=== PATIENT | female | born 1980 | race African-American/Black ===

== ENCOUNTER 2016-05-31 17:40 | Emergency (ER) | payer BC ==
[2016-01-25 17:12] VITALS: BP 152/85
[~2016-05-31 17:40] MED LIST: CYCL10TA2 PO; NAPR250T2 PO; ONDA4TAB7 PO
== END 2016-05-31 20:03 | disposition left against medical advice (07) ==
LOC: ER 17:40
DX: J02.9 Acute pharyngitis, unspecified (principal); R05 Cough; Z53.21 Procedure and treatment not carried out due to patient leaving prior to being seen by health care provider

== ENCOUNTER 2016-06-20 06:52 | Emergency (ER) | payer BC ==
[~2016-06-20] VITALS: Ht 154.9 cm; Wt 52.2 kg
--- NOTE | 2016-06-20 06:58 | PHYS DOC ---
Past Medical History Past Medical History: Depression Past Surgical History: No Surgical History Alcohol Use: Rarely Drug Use: None Adult General Chief Complaint Chief Complaint: EYE PROBLEMS HPI HPI Patient is a 35 year old for can [place] female who presents with right eye pain. She states this started yesterday during the day, she felt right-sided headache took Tylenol and it resolved. She woke up this morning with yellow crusty discharge out of her right eye and redness on her sclera in the medial aspect. She states she's having some itchy sensation across that yesterday and today is more pain sensation. She does complain about cold-like symptoms. She denies any changes in vision. Her tetanus shot is up-to-date. Review of Systems Review of Systems Constitutional: Denies fever or chills [] Eyes: Denies change in visual acuity, redness, or eye pain [] HENT: Denies nasal congestion or sore throat [] Respiratory: Denies cough or shortness of breath [] Cardiovascular: No additional information not addressed in HPI [] GI: Denies abdominal pain, nausea, vomiting, bloody stools or diarrhea [] : Denies dysuria or hematuria [] Musculoskeletal: Denies back pain or joint pain [] Integument: Denies rash or skin lesions [] Neurologic: Denies headache, focal weakness or sensory changes [] Endocrine: Denies polyuria or polydipsia [] Current Medications Current Medications Current Medications Medications (Trade) Dose Ordered Sig/Randy Start Time Stop Time Status Last Admin Dose Admin Erythromycin (Romycin) 0.25 inch 1X ONCE 06/20/16 07:30 06/20/16 07:31 DC 06/20/16 07:35 0.25 INCH Fluorescein Sodium (Ful-Nia) 1 strip 1X ONCE 06/20/16 07:15 06/20/16 07:16 DC 06/20/16 07:35 1 STRIP Tetracaine HCl (Tetracaine) 1 drop 1X ONCE 06/20/16 07:15 06/20/16 07:16 DC 06/20/16 07:35 1 DROP Allergies Allergies Allergies Coded Allergies Type Severity Reaction Last Updated Verified Penicillins Allergy Unknown 01/25/16 Yes Physical Exam Physical Exam Constitutional: Well developed, well nourished, no acute distress, non-toxic appearance. [] HENT: Normocephalic, atraumatic, bilateral external ears normal, oropharynx moist, no oral exudates, nose normal. [] Eyes: PERRLA, EOMI without pain, erythematous conjunctiva in the right eye than the left lateral aspect towards the Ravi, Rosendo-Pen shows pressures of 12, 15, 13 , for seeing did not show any uptake over the cornea, no discharge. [] Neck: Normal range of motion, no tenderness, supple, no stridor. [] Cardiovascular:Heart rate regular rhythm, no murmur [] Lungs & Thorax: Bilateral breath sounds clear to auscultation [] Abdomen: Bowel sounds normal, soft, no tenderness, no masses, no pulsatile masses. [] Skin: Warm, dry, no erythema, no rash. [] Back: No tenderness, no CVA tenderness. [] Extremities: No tenderness, no cyanosis, no clubbing, ROM intact, no edema. [] Neurologic: Alert and oriented X 3, normal motor function, normal sensory function, no focal deficits noted. [] Psychologic: Affect normal, judgement normal, mood normal. [] Current Patient Data Vital Signs Vital Signs Date Time Temp Pulse Resp B/P Pulse Ox O2 Delivery O2 Flow Rate FiO2 06/20/16 07:00 98.4 97 16 100 Room Air 98.4 06/20/16 06:58 121/76 EKG EKG [] Radiology/Procedures Radiology/Procedures [] Impressions: Conjunctivitis right eye Course & Med Decision Making Course & Med Decision Making Pertinent Labs and Imaging studies reviewed. (See chart for details) Acuities were 20/13 both eyes, 20/15 left eye, 20/15 right eye. Rosendo-Pen does not show any elevation of her pressures, there is no corneal abrasions or other concerning features. Patient being discharged with erythromycin ointment and to follow-up with her eye doctor today. Return precautions given for fevers, worsening pain, or other concerns return back to emergency department. She is agreeable plan being discharge in stable condition this time. Dragon Disclaimer Dragon Disclaimer This electronic medical record was generated, in whole or in part, using a voice recognition dictation system. Departure Departure Impression: Primary Impression: Conjunctivitis Disposition: 01 HOME, SELF-CARE Referrals: VLADIMIR HOPE MD (PCP) Patient Instructions: Allergic Conjunctivitis, [id number] Additional Instructions: You have conjunctivitis. It is difficult to determine if this is bacterial or viral. The exam of your eye did not show any acute abnormalities. You being discharged home with ureter myosin ointment and needs to be applied 4 times daily approximately 1/2 inch ribbon to the affected eye. He'll need to follow up with her eye doctor today. Return back to ER for increasing pain, blurry vision, fevers, or other concerns. Problem Qualifiers Primary Impression: Conjunctivitis Conjunctivitis type: acute Acute conjunctivitis type: unspecified Laterality: right Qualified Code: H10.31 - Unspecified acute conjunctivitis, right eye WILLIAMS VALDIVIA MD Jun 20, 2016 06:58
[2016-06-20] MEDS ORDERED: FLUORESCEIN OPHTH TEST STRIP. OD ONE (07:15)
[2016-06-20] MEDS ORDERED: TETRACAINE 0.5% OPHTH SOLUTION 4ML BOTTLE. OD ONE (07:15)
[2016-06-20] MEDS ORDERED: ERYTHROMYCIN 0.5% OPHTH OINTMENT 1GM TUBE. OD ONE (07:30)
[2016-06-20 08:00] VITALS: BP 139/82
== END 2016-06-20 08:10 | disposition home or self-care (01) ==
LOC: ER 06:52
DX: H10.31 Unspecified acute conjunctivitis, right eye (principal); R51 Headache; F32.9 Major depressive disorder, single episode, unspecified; Z88.0 Allergy status to penicillin
CPT/HCPCS: 99283

== ENCOUNTER 2017-03-11 06:56 | Emergency (ER) | payer BC ==
[~2017-03-11 06:56] MED LIST changes: -NAPR250T2 PO; +NAPR250T6 PO
[2017-03-11 07:09] VITALS: BP 147/79
[2017-03-11] MEDS ORDERED: BENZ100C PO (07:22)
[2017-03-11] MEDS ORDERED: PROAIR RESPICL90 MCG IH (07:22)
--- NOTE | 2017-03-11 07:23 | PHYS DOC ---
Past Medical History Past Medical History: Depression Past Surgical History: No Surgical History Additional Information: Black and Mild's Alcohol Use: None Drug Use: None Adult General Chief Complaint Chief Complaint: COUGH HPI HPI Patient is a 36 year old female with a history of smoking and depression who presents with a productive cough with nasal congestion for 3-4 days. Patient denies any fever. Patient's also complaining of a sore throat. Review of Systems Review of Systems Constitutional: Denies fever or chills [] Eyes: Denies change in visual acuity, redness, or eye pain [] HENT: nasal congestion and sore throat [] Respiratory: cough denies shortness of breath [] Cardiovascular: No additional information not addressed in HPI [] GI: Denies abdominal pain, nausea, vomiting, bloody stools or diarrhea [] : Denies dysuria or hematuria [] Musculoskeletal: Denies back pain or joint pain [] Integument: Denies rash or skin lesions [] Neurologic: Denies headache, focal weakness or sensory changes [] All other systems were reviewed and found to be within normal limits, except as documented in this note. Allergies Allergies Allergies Coded Allergies Type Severity Reaction Last Updated Verified Penicillins Allergy Unknown 01/25/16 Yes Physical Exam Physical Exam Constitutional: Well developed, well nourished, no acute distress, non-toxic appearance. [] HENT: Normocephalic, atraumatic, bilateral external ears normal, oropharynx moist, no oral exudates, nose normal. [] Eyes: PERRLA, EOMI, conjunctiva normal, no discharge. [] Neck: Normal range of motion, no tenderness, supple, no stridor. [] Cardiovascular:Heart rate regular rhythm, no murmur [] Lungs & Thorax: Bilateral breath sounds clear to auscultation [] Abdomen: Bowel sounds normal, soft, no tenderness, no masses, no pulsatile masses. [] Skin: Warm, dry, no erythema, no rash. [] Back: No tenderness, no CVA tenderness. [] Extremities: No tenderness, no cyanosis, no clubbing, ROM intact, no edema. [] Neurologic: Alert and oriented X 3, normal motor function, normal sensory function, no focal deficits noted. [] Psychologic: Affect normal, judgement normal, mood normal. [] Current Patient Data Vital Signs Vital Signs Date Time Temp Pulse Resp B/P (MAP) Pulse Ox O2 Delivery O2 Flow Rate FiO2 03/11/17 07:09 99.1 116 20 100 Room Air 99.1 EKG EKG [] Radiology/Procedures Radiology/Procedures [] Course & Med Decision Making Course & Med Decision Making Pertinent Labs and Imaging studies reviewed. (See chart for details) Patient is in the ED with symptoms consistent of viral bronchitis including coughing and nasal congestion. She was encouraged to consider smoking cessation. She'll be discharged with albuterol inhaler prednisone for 5 days and Tessalon Perles. Follow-up with primary care doctor in 1-2 weeks. Dragon Disclaimer Dragon Disclaimer This electronic medical record was generated, in whole or in part, using a voice recognition dictation system. Departure Departure Impression: Primary Impression: Acute bronchitis Additional Impression: Smoking addiction Disposition: HOME, SELF-CARE Condition: STABLE Referrals: VLADIMIR HOPE MD (PCP) follow up in one week Patient Instructions: Acute Bronchitis, Smoking Cessation Additional Instructions: You were seen with symptoms consistent of viral bronchitis. Use a prescription medicine as ordered. Consider smoking cessation. Follow up with your doctor in one week Scripts Prednisone (PREDNISONE) 50 Mg Tablet 1 TAB PO DAILY, #5 TAB Prov: MENG KRUEGER APRN 03/11/17 Benzonatate (TESSALON PERLE) 100 Mg Capsule 1 CAP PO TID, #30 CAP Prov: MUTUNGA,MENG MANAGER WIND 03/11/17 Benzonatate (TESSALON PERLE) 100 Mg Capsule 1 CAP PO TID, #30 CAP Prov: MENG KRUEGER APRN 03/11/17 Albuterol Sulfate (Proair Respiclick) 90 Mcg Aer.pow.ba 1 PUFF IH PRN Q6HRS Y for SHORTNESS OF BREATH, #1 INHALER Prov: MENG KRUEGER APRN 03/11/17 Problem Qualifiers Primary Impression: Acute bronchitis Bronchitis organism: unspecified organism Qualified Codes: J20.9 - Acute bronchitis, unspecified MENG KRUEGER APRN Mar 11, 2017 07:23
[2017-03-11] MEDS ORDERED: PRED50TA PO (08:34)
== END 2017-03-11 09:07 | disposition home or self-care (01) ==
LOC: ER 06:56
DX: J20.9 Acute bronchitis, unspecified (principal); F17.200 Nicotine dependence, unspecified, uncomplicated; Z88.0 Allergy status to penicillin
CPT/HCPCS: 99283

== ENCOUNTER 2017-11-30 00:08 | Emergency (ER) | payer BC, OTHER ==
[~2017-11-30] VITALS: Ht 149.9 cm; Wt 51.3 kg
[~2017-11-30 00:08] MED LIST changes: +BENZ100C PO; +PRED50TA PO; +PROAIR RESPICL90 MCG IH
[2017-11-30 02:12] LABS: BASO % 1 % (0-3); EOS # 0.1 x10^3/uL (0.0-0.7); EOS % 1 % (0-3); HEMATOCRIT 39.1 % (36.0-47.0); HEMOGLOBIN 13.4 g/dL (12.0-15.5); LYMPH # 3.2 x10^3/uL (1.0-4.8); LYMPH % 47 % (24-48); MEAN CORPUSCULAR HEMOGLOBIN 34 pg (25-35); MEAN CORPUSCULAR HGB CONC 34 g/dL (31-37); MEAN CORPUSCULAR VOLUME 99 fL (79-100); MONO # 0.6 x10^3/uL (0.0-1.1); MONO % 10 % (0-9); NEUT # 2.8 x10^3uL (1.8-7.7); NEUT % 42 % (31-73); PLATELET COUNT 314 x10^3/uL (140-400); RED BLOOD COUNT 3.96 x10^6/uL (3.50-5.40); RED CELL DISTRIBUTION WIDTH 13.3 % (11.5-14.5); WHITE BLOOD COUNT 6.7 x10^3/uL (4.0-11.0)
[2017-11-30 02:14] LABS: BILIRUBIN,URINE NEGATIVE (NEG); CLARITY,URINE CLEAR; COLOR,URINE YELLOW; NITRITE,URINE NEGATIVE (NEG); PH,URINE 5.5; PROTEIN,URINE NEGATIVE (NEG-TRACE)
[2017-11-30 02:24] LABS: CREATININE 0.7 mg/dL (0.6-1.0); GFR 112.7; POTASSIUM 3.9 mmol/L (3.5-5.1)
[2017-11-30 02:27] LABS: BACTERIA,URINE 0 /HPF (0-FEW); RBC,URINE 0 /HPF (0-2); SQUAMOUS EPITHELIAL CELL,UR FEW /LPF; WBC,URINE RARE /HPF (0-4)
[2017-11-30 02:30] LABS: ALBUMIN 4.2 g/dL (3.4-5.0); ALBUMIN/GLOBULIN RATIO 1.2 (1.0-1.7); TOTAL BILIRUBIN 0.5 mg/dL (0.2-1.0); TOTAL PROTEIN 7.6 g/dL (6.4-8.2)
--- NOTE | 2017-11-30 03:59 | RAD ---
Ultrasound obstetric less than 14 weeks with transvaginal 11/30/2017 CLINICAL INDICATION: Vaginal pain, bleeding for 5 days. COMPARISON: None. FINDINGS: Uterus measures 9.8 x 5.3 x 6.9 cm. There is thin focal fluid at the fundal endometrium measuring 1.5 x 0.6 x 0.4 cm. Left ovary measures 2.9 x 3.1 x 1.7 cm with normal color Doppler imaging. Right ovary measures 2.6 x 3.0 x 1.8 cm with normal color Doppler imaging. Endometrium measures 1.4 cm without abnormal endometrial blood flow. No significant pelvic free fluid. IMPRESSION: 1. Mild thin focal fluid at the fundal endometrium without definitive gestational sac. Findings may be due to early dates. Close clinical follow-up and serial beta hCGs recommended. 2. Ovaries unremarkable. 3. No significant pelvic free fluid. Electronically signed by: Blair Guidry MD (11/30/2017 3:56 AM) [id number]
--- NOTE | 2017-11-30 04:18 | PHYS DOC ---
Past Medical History Past Medical History: Asthma, Depression, Hypertension Past Surgical History: No Surgical History Alcohol Use: None Drug Use: None Adult General Chief Complaint Chief Complaint: VAGINAL BLEEDING HPI HPI Patient is a 37-year-old female who presents with complaint of vaginal spotting and pelvic pain for the last 5 days. Patient indicates that she is and believes herself to be somewhere near 8 weeks based on dates. Patient has not yet seen an CASH POSTING REPRESENTATIVE. She rates the pain in her pelvis at a 5-6 out of 10 and states that it is in the left side. She denies any nausea or vomiting. She also denies any fever or urinary discomfort. 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 Review of Systems Review of Systems Constitutional: Denies fever or chills [] Respiratory: Denies cough or shortness of breath [] Cardiovascular: Denies chest pain[] GI: Complains of lower abdominal/pelvic pain without nausea or vomiting[] : Denies dysuria. Reports vaginal bleeding 5 days [] All other systems were reviewed and found to be within normal limits, except as documented in this note. Allergies Allergies Allergies Coded Allergies Type Severity Reaction Last Updated Verified Penicillins Allergy Unknown 01/25/16 Yes Physical Exam Physical Exam Constitutional: Well developed, well nourished, no acute distress, non-toxic appearance. [] HENT: Normocephalic, atraumatic, bilateral external ears normal, oropharynx moist, no oral exudates, nose normal. [] Eyes: PERRLA, EOMI, conjunctiva normal, no discharge. [] Neck: Normal range of motion, no tenderness, supple, no stridor. [] Cardiovascular:Heart rate regular rhythm, no murmur [] Lungs & Thorax: Bilateral breath sounds clear to auscultation [] Abdomen: Bowel sounds normal, soft, no tenderness. [] Skin: Warm, dry, no erythema, no rash. [] Extremities: No tenderness, no cyanosis, no clubbing, ROM intact, no edema. [] Neurologic: Alert and oriented X 3, normal motor function, normal sensory function, no focal deficits noted. [] Current Patient Data Vital Signs Vital Signs Date Time Temp Pulse Resp B/P (MAP) Pulse Ox O2 Delivery O2 Flow Rate FiO2 11/30/17 04:27 72 20 117/75 (89) 99 Room Air 11/30/17 00:27 98.8 98.8 Lab Values Laboratory Tests Test 11/30/17 01:00 11/30/17 01:33 Urine Collection Type Unknown Urine Color Yellow Urine Clarity Clear Urine pH 5.5 Urine Specific [place] 1.025 Urine Protein Negative mg/dL (NEG-TRACE) Urine Glucose (UA) Negative mg/dL (NEG) Urine Ketones (Stick) Negative mg/dL (NEG) Urine Blood Negative (NEG) Urine Nitrite Negative (NEG) Urine Bilirubin Negative (NEG) Urine Urobilinogen Dipstick 1.0 mg/dL (0.2 mg/dL) Urine Leukocyte Esterase Negative (NEG) Urine RBC 0 /HPF (0-2) Urine WBC Rare /HPF (0-4) Urine Squamous Epithelial Cells Few /LPF Urine Bacteria 0 /HPF (0-FEW) Urine Mucus Mod /LPF White Blood Count 6.7 x10^3/uL (4.0-11.0) Red Blood Count 3.96 x10^6/uL (3.50-5.40) Hemoglobin 13.4 g/dL (12.0-15.5) Hematocrit 39.1 % (36.0-47.0) Mean Corpuscular Volume 99 fL (79-100) Mean Corpuscular Hemoglobin 34 pg (25-35) Mean Corpuscular Hemoglobin Concent 34 g/dL (31-37) Red Cell Distribution Width 13.3 % (11.5-14.5) Platelet Count 314 x10^3/uL (140-400) Neutrophils (%) (Auto) 42 % (31-73) Lymphocytes (%) (Auto) 47 % (24-48) Monocytes (%) (Auto) 10 % (0-9) H Eosinophils (%) (Auto) 1 % (0-3) Basophils (%) (Auto) 1 % (0-3) Neutrophils # (Auto) 2.8 x10^3uL (1.8-7.7) Lymphocytes # (Auto) 3.2 x10^3/uL (1.0-4.8) Monocytes # (Auto) 0.6 x10^3/uL (0.0-1.1) Eosinophils # (Auto) 0.1 x10^3/uL (0.0-0.7) Basophils # (Auto) 0.0 x10^3/uL (0.0-0.2) Maternal Serum HCG Beta Subunit 872 mIU/mL (0-5) H Sodium Level 139 mmol/L (136-145) Potassium Level 3.9 mmol/L (3.5-5.1) Chloride Level 103 mmol/L (98-107) Carbon Dioxide Level 24 mmol/L (21-32) Anion Gap 12 (6-14) Blood Urea Nitrogen 8 mg/dL (7-20) Creatinine 0.7 mg/dL (0.6-1.0) Estimated GFR (Cockcroft-Gault) 112.7 BUN/Creatinine Ratio 11 (6-20) Glucose Level 96 mg/dL (70-99) Calcium Level 9.0 mg/dL (8.5-10.1) Total Bilirubin 0.5 mg/dL (0.2-1.0) Aspartate Amino Transferase (AST) 17 U/L (15-37) Alanine Aminotransferase (ALT) 22 U/L (14-59) Alkaline Phosphatase 62 U/L (46-116) Total Protein 7.6 g/dL (6.4-8.2) Albumin 4.2 g/dL (3.4-5.0) Albumin/Globulin Ratio 1.2 (1.0-1.7) Laboratory Tests 11/30/17 01:33 Laboratory Tests 11/30/17 01:33 EKG EKG [] Radiology/Procedures Radiology/Procedures [] Impressions: IMPRESSION: 1. Mild thin focal fluid at the fundal endometrium without definitive gestational sac. Findings may be due to early dates. Close clinical follow-up and serial beta hCGs recommended. 2. Ovaries unremarkable. 3. No significant pelvic free fluid. Course & Med Decision Making Course & Med Decision Making Pertinent Labs and Imaging studies reviewed. (See chart for details) [] Dragon Disclaimer Dragon Disclaimer This electronic medical record was generated, in whole or in part, using a voice recognition dictation system. Departure Departure Impression: Primary Impression: Threatened miscarriage Disposition: HOME, SELF-CARE Condition: STABLE Referrals: VLADIMIR HUYNH (PCP) Patient Instructions: Threatened Miscarriage Additional Instructions: Follow-up with your CASH POSTING REPRESENTATIVE early this week. ALEXANDER ANSARI Jr. DO Nov 30, 2017 04:18
[2017-11-30 04:27] VITALS: BP 117/75
== END 2017-11-30 04:29 | disposition home or self-care (01) ==
LOC: ER 00:08
DX: O20.0 Threatened abortion (principal); O16.1 Unspecified maternal hypertension, first trimester; O99.511 Diseases of the respiratory system complicating pregnancy, first trimester; J45.909 Unspecified asthma, uncomplicated; O99.341 Other mental disorders complicating pregnancy, first trimester; F32.9 Major depressive disorder, single episode, unspecified; Z3A.08 8 weeks gestation of pregnancy; Z88.0 Allergy status to penicillin
CPT/HCPCS: 36415; 76801; 76817; 80053; 81001; 84702; 85025; 86900; 86901; 99285-25

== ENCOUNTER 2019-06-09 10:24 | Emergency (ER) | payer SELFPAY ==
[~2019-06-09] VITALS: Ht 157.5 cm; Wt 50.0 kg
--- NOTE | 2019-06-09 12:08 | PHYS DOC ---
Past Medical History Past Medical History: Asthma, Depression, Hypertension Past Surgical History: No Surgical History Smoking Status: Former Smoker Alcohol Use: None Drug Use: None Adult General Chief Complaint Chief Complaint: VAGINAL BLEEDING HPI HPI 38-year-old female multiparous with a hx of ectopic x 1 presenting the emergency department with abdominal pain and vaginal bleeding and . She is about 5 weeks by last menstrual period. She has had some light spotting with a mild cramping in the suprapubic region. She is a positive by review of the EMR. Her cramping comes and goes. Her spotting is worse when she is ambulating. She denies any vomiting. Review of systems negative for shortness of breath fevers chills. Negative for chest pain. All other review of systems negative. ED course: 38-year-old female presenting with abdominal pain and vaginal bleeding in with a history of ectopic . Labs and ultrasound ordered. CBC unremarkable. Chem unremarkable. ua neg. hcg quant is 1110 and US shows possible gestational sac. We will have the patient follow-up with OB gynecology in 1-2 days for repeat quantitative hCG and reexamination. Allergies Allergies Allergies Coded Allergies Type Severity Reaction Last Updated Verified Penicillins Allergy Unknown 01/25/16 Yes Physical Exam Physical Exam Constitutional: Well developed, well nourished, no acute distress, non-toxic appearance. [] HENT: Normocephalic, atraumatic, bilateral external ears normal, oropharynx moist, no oral exudates, nose normal. [] Eyes: PERRLA, EOMI, conjunctiva normal, no discharge. [] Neck: Normal range of motion, no tenderness, supple, no stridor. [] Cardiovascular:Heart rate regular rhythm, no murmur [] Lungs & Thorax: Bilateral breath sounds clear to auscultation [] Abdomen: Bowel sounds normal, soft, no tenderness, no masses, no pulsatile masses. [] Skin: Warm, dry, no erythema, no rash. [] Back: No tenderness, no CVA tenderness. [] Extremities: No tenderness, no cyanosis, no clubbing, ROM intact, no edema. [] Neurologic: Alert and oriented X 3, normal motor function, normal sensory function, no focal deficits noted. [] Psychologic: Affect normal, judgement normal, mood normal. [] Current Patient Data Vital Signs Vital Signs Date Time Temp Pulse Resp B/P (MAP) Pulse Ox O2 Delivery O2 Flow Rate FiO2 06/09/19 11:50 99.5 87 14 109/70 (83) 100 Room Air 99.5 Lab Values Laboratory Tests Test 06/09/19 11:50 06/09/19 12:01 06/09/19 12:15 Urine Collection Type Void Urine Color Yellow Urine Clarity Clear Urine pH 7.5 Urine Specific [place] 1.020 Urine Protein Negative mg/dL (NEG-TRACE) Urine Glucose (UA) Negative mg/dL (NEG) Urine Ketones (Stick) Negative mg/dL (NEG) Urine Blood Negative (NEG) Urine Nitrite Negative (NEG) Urine Bilirubin Negative (NEG) Urine Urobilinogen Dipstick 0.2 mg/dL (0.2 mg/dL) Urine Leukocyte Esterase Negative (NEG) Urine RBC 0 /HPF (0-2) Urine WBC 0 /HPF (0-4) Urine Squamous Epithelial Cells Mod /LPF Urine Bacteria 0 /HPF (0-FEW) Urine Mucus Mod /LPF POC Urine HCG, Qualitative Hcg positive (Negative) White Blood Count 5.6 x10^3/uL (4.0-11.0) Red Blood Count 4.03 x10^6/uL (3.50-5.40) Hemoglobin 13.3 g/dL (12.0-15.5) Hematocrit 39.4 % (36.0-47.0) Mean Corpuscular Volume 98 fL (79-100) Mean Corpuscular Hemoglobin 33 pg (25-35) Mean Corpuscular Hemoglobin Concent 34 g/dL (31-37) Red Cell Distribution Width 13.1 % (11.5-14.5) Platelet Count 338 x10^3/uL (140-400) Neutrophils (%) (Auto) 48 % (31-73) Lymphocytes (%) (Auto) 44 % (24-48) Monocytes (%) (Auto) 8 % (0-9) Eosinophils (%) (Auto) 0 % (0-3) Basophils (%) (Auto) 1 % (0-3) Neutrophils # (Auto) 2.7 x10^3/uL (1.8-7.7) Lymphocytes # (Auto) 2.5 x10^3/uL (1.0-4.8) Monocytes # (Auto) 0.4 x10^3/uL (0.0-1.1) Eosinophils # (Auto) 0.0 x10^3/uL (0.0-0.7) Basophils # (Auto) 0.0 x10^3/uL (0.0-0.2) Maternal Serum HCG Beta Subunit 1110 mIU/mL (0-5) H Sodium Level 141 mmol/L (136-145) Potassium Level 3.6 mmol/L (3.5-5.1) Chloride Level 105 mmol/L (98-107) Carbon Dioxide Level 24 mmol/L (21-32) Anion Gap 12 (6-14) Blood Urea Nitrogen 7 mg/dL (7-20) Creatinine 0.7 mg/dL (0.6-1.0) Estimated GFR (Cockcroft-Gault) 112.1 Glucose Level 93 mg/dL (70-99) Calcium Level 9.1 mg/dL (8.5-10.1) Total Bilirubin 0.4 mg/dL (0.2-1.0) Direct Bilirubin 0.1 mg/dL (0.0-0.2) Aspartate Amino Transferase (AST) 12 U/L (15-37) L Alanine Aminotransferase (ALT) 17 U/L (14-59) Alkaline Phosphatase 63 U/L (46-116) Total Protein 7.7 g/dL (6.4-8.2) Albumin 4.1 g/dL (3.4-5.0) Lipase 151 U/L (73-393) Laboratory Tests 06/09/19 12:15 Laboratory Tests 06/09/19 12:15 EKG EKG [] Radiology/Procedures Radiology/Procedures [] Course & Med Decision Making Course & Med Decision Making Pertinent Labs and Imaging studies reviewed. (See chart for details) [] Dragon Disclaimer Dragon Disclaimer This electronic medical record was generated, in whole or in part, using a voice recognition dictation system. Departure Departure Impression: Primary Impression: Vaginal bleeding during Disposition: 01 HOME, SELF-CARE Condition: STABLE Referrals: VLADIMIR HUYNH (PCP) SEPIDEH RODAS Jr, MD Patient Instructions: Vaginal Bleeding During , First Trimester Additional Instructions: Thank you for allowing us to participate in your care today. Return to the emergency department you have any new or worsening symptoms, or if you are concerned for any reason. Return to emergency department if you have any new or concerning symptoms including but not limited to fever, chills, nausea, vomiting, intractable pain, any new rashes, chest pain, shortness of air, uncontrolled bleeding, difficulty breathing, and/or vision loss. Follow up with your automobile or truck rental dispatcher in 1-2 days for repeat blood test and reexamination. Call your Primary Doctor tomorrow and inform them of your visit today. If you do not have a primary care provider we are happy to provide you with a list of our primary care providers contact information. This condition should be evaluated by your primary care physician and any recommended consulting services for continued management within 2 days after discharge. If at any time, you are having difficulty getting into your primary care doctor or a specialist, return to the emergency department. LAI MORALEZ MD Jun 09, 2019 12:08
[2019-06-09 12:30] LABS: BILIRUBIN,URINE NEGATIVE (NEG); CLARITY,URINE CLEAR; COLOR,URINE YELLOW; NITRITE,URINE NEGATIVE (NEG); PH,URINE 7.5; PROTEIN,URINE NEGATIVE (NEG-TRACE); UROBILINOGEN,URINE 0.2 mg/dL (0.2 mg/dL)
[2019-06-09 12:31] LABS: BASO % 1 % (0-3); EOS % 0 % (0-3); HEMATOCRIT 39.4 % (36.0-47.0); HEMOGLOBIN 13.3 g/dL (12.0-15.5); LYMPH # 2.5 x10^3/uL (1.0-4.8); LYMPH % 44 % (24-48); MEAN CORPUSCULAR HEMOGLOBIN 33 pg (25-35); MEAN CORPUSCULAR HGB CONC 34 g/dL (31-37); MEAN CORPUSCULAR VOLUME 98 fL (79-100); MONO # 0.4 x10^3/uL (0.0-1.1); MONO % 8 % (0-9); NEUT # 2.7 x10^3/uL (1.8-7.7); NEUT % 48 % (31-73); PLATELET COUNT 338 x10^3/uL (140-400); RED BLOOD COUNT 4.03 x10^6/uL (3.50-5.40); RED CELL DISTRIBUTION WIDTH 13.1 % (11.5-14.5); WHITE BLOOD COUNT 5.6 x10^3/uL (4.0-11.0)
[2019-06-09 12:37] LABS: BACTERIA,URINE 0 /HPF (0-FEW); RBC,URINE 0 /HPF (0-2); SQUAMOUS EPITHELIAL CELL,UR MOD /LPF; WBC,URINE 0 /HPF (0-4)
[2019-06-09 12:41] LABS: CALCIUM 9.1 mg/dL (8.5-10.1); CREATININE 0.7 mg/dL (0.6-1.0); GFR 112.1; POTASSIUM 3.6 mmol/L (3.5-5.1)
[2019-06-09 12:47] LABS: ALBUMIN 4.1 g/dL (3.4-5.0); DIRECT BILIRUBIN 0.1 mg/dL (0.0-0.2); TOTAL BILIRUBIN 0.4 mg/dL (0.2-1.0); TOTAL PROTEIN 7.7 g/dL (6.4-8.2)
[2019-06-09 13:00] VITALS: BP 130/73
--- NOTE | 2019-06-09 14:18 | RAD ---
OB <14 WKS W/TV History: Vaginal bleeding. Comparison: None. Technique: Grayscale and color Doppler imaging of the pelvis was performed using transabdominal and transvaginal technique. Findings: The uterus measures 7.5 x 5.2 x 6.1 cm in length. Possible gestational sac within the endometrium measures 0.3 cm. Estimated gestational age 5 weeks 0 days. No evidence of pole or yolk sac. Thickened endometrium measures up to 2.3 cm. Right ovary measures 2.8 x 1.6 x 3.6 cm dominant complicated right ovarian follicle measures 2.1 cm, may represent corpus luteal cyst. Left ovary measures 2.2 x 1.1 x 2.5 cm and is unremarkable. No adnexal masses are seen. No free fluid. IMPRESSION: 1. Possible intrauterine gestational sac, may relate to early . Recommend short-term ultrasound follow-up and serial beta-hCG testing. Electronically signed by: Steven Robison DO (06/09/2019 2:15 PM) [id number]
== END 2019-06-09 14:50 | disposition home or self-care (01) ==
LOC: ER 10:24
DX: O46.91 Antepartum hemorrhage, unspecified, first trimester (principal); R10.30 Lower abdominal pain, unspecified; Z87.891 Personal history of nicotine dependence; O16.1 Unspecified maternal hypertension, first trimester; O99.341 Other mental disorders complicating pregnancy, first trimester; F32.9 Major depressive disorder, single episode, unspecified; O99.511 Diseases of the respiratory system complicating pregnancy, first trimester; J45.909 Unspecified asthma, uncomplicated; Z3A.01 Less than 8 weeks gestation of pregnancy; Z88.0 Allergy status to penicillin
CPT/HCPCS: 36415; 76801; 76817; 80048; 80076; 81001; 81025; 83690; 84702; 85025; 99285-25

== ENCOUNTER 2019-06-22 00:19 | Observation (INO) | payer OTHER ==
[~2019-06-22] VITALS: Ht 149.9 cm; Wt 52.3 kg
[2019-06-22 01:16] LABS: BASO # 0.1 x10^3/uL (0.0-0.2); BASO % 1 % (0-3); EOS % 1 % (0-3); HEMATOCRIT 32.7 % (36.0-47.0); HEMOGLOBIN 11.2 g/dL (12.0-15.5); LYMPH % 45 % (24-48); MEAN CORPUSCULAR HEMOGLOBIN 33 pg (25-35); MEAN CORPUSCULAR HGB CONC 34 g/dL (31-37); MEAN CORPUSCULAR VOLUME 97 fL (79-100); MONO # 0.6 x10^3/uL (0.0-1.1); MONO % 7 % (0-9); NEUT # 4.3 x10^3/uL (1.8-7.7); NEUT % 48 % (31-73); PLATELET COUNT 314 x10^3/uL (140-400); RED BLOOD COUNT 3.39 x10^6/uL (3.50-5.40); RED CELL DISTRIBUTION WIDTH 13.3 % (11.5-14.5); WHITE BLOOD COUNT 9.1 x10^3/uL (4.0-11.0)
[2019-06-22 01:22] LABS: PROTHROMBIN TIME PATIENT 13.5 SEC (11.7-14.0)
--- NOTE | 2019-06-22 01:22 | PHYS DOC ---
Past Medical History Past Medical History: Asthma, Depression, Hypertension Past Surgical History: No Surgical History Smoking Status: Former Smoker Alcohol Use: None Drug Use: None Adult General Chief Complaint Chief Complaint: ABDOMINAL PAIN IN HPI HPI Patient is a 38 year old female who presents from [facility] with report of ectopic . Dr. Armendariz has requested that patient be transferred to the ER and ultrasound be performed to confirm ectopic. Patient does report pain in her pelvic region as well as vaginal spotting. She rates the pain as moderate currently after receiving medication for pain.[] Review of Systems Review of Systems Constitutional: Denies fever or chills [] Respiratory: Denies cough or shortness of breath [] Cardiovascular: No additional information not addressed in HPI [] GI: Complains of lower abdominal pain[] : Complains of vaginal bleeding[] Musculoskeletal: Denies back pain or joint pain [] All other systems were reviewed and found to be within normal limits, except as documented in this note. Current Medications Current Medications Current Medications Medications (Trade) Dose Ordered Sig/Randy Start Time Stop Time Status Last Admin Dose Admin Fentanyl Citrate (Fentanyl 2ml Vial) 25 mcg PRN Q15MIN PRN 06/22/19 00:30 06/23/19 00:29 Allergies Allergies Allergies Coded Allergies Type Severity Reaction Last Updated Verified Penicillins Allergy Intermediate 06/22/19 Yes Physical Exam Physical Exam Constitutional: Well developed, well nourished, no acute distress, non-toxic appearance. [] Cardiovascular: Regular rate and rhythm[] Lungs & Thorax: Bilateral breath sounds clear to auscultation [] Abdomen: Bowel sounds normal, soft, with suprapubic and right adnexal tenderness. [] Skin: Warm, dry, no erythema, no rash. [] Extremities: No tenderness, no cyanosis, no clubbing, ROM intact, no edema. [] Neurologic: Alert and oriented X 3, no focal deficits noted. [] EKG EKG [] Radiology/Procedures Radiology/Procedures [] Course & Med Decision Making Course & Med Decision Making Pertinent Labs and Imaging studies reviewed. (See chart for details) Patient moved to room upon arrival was evaluated by your medical staff after which blood work was drawn. Transvaginal ultrasound also obtained and demons trates confirmation of right-sided ectopic with suspected rupture. Findings have been reviewed with Dr. Armendariz and he has requested that OR team be called in. Jam Disclaimer Jma Disclaimer This electronic medical record was generated, in whole or in part, using a voice recognition dictation system. Departure Departure Impression: Primary Impression: , ectopic, tubal Disposition: ADMITTED INPATIENT Condition: IMPROVED Referrals: VLADIMIR HUYNH (PCP) Problem Qualifiers Primary Impression: , ectopic, tubal Intrauterine status: without intrauterine Laterality: right Qualified Codes: O00.101 - Right tubal without intrauterine ALEXANDER ANSARI Jr. DO Jun 22, 2019 01:22
[2019-06-22 01:24] LABS: CALCIUM 9.1 mg/dL (8.5-10.1); CREATININE 0.6 mg/dL (0.6-1.0); POTASSIUM 3.8 mmol/L (3.5-5.1)
--- NOTE | 2019-06-22 01:24 | RAD ---
OB TRANSVAG History: Suspected ectopic . Pain. Comparison: June 09, 2019. Technique: Grayscale and color Doppler imaging of the pelvis was performed using transvaginal technique. Findings: The uterus measures 10.0 x 5.5 x 5.1 cm in length. No evidence of intrauterine gestational sac. Thickened endometrium measures up to 1.8 cm. Right adnexal ectopic between the ovary and uterus. The gestational sac measures 2.3 x 2.3 x 2.0 cm. Yolk sac is identified. No crown-rump length. There is adjacent complex material, concerning for hemorrhage. Right ovary measures 3.2 x 1.7 x 1.5 cm. Right corpus luteal cyst. Left ovary measures 2.4 x 1.0 x 1.0 cm. No adnexal masses are seen. IMPRESSION: 1. Right ectopic with adjacent heterogeneous material, may represent hemorrhage related to ruptured ectopic . FOR INTERNAL CODING PURPOSES Critical result: Findings discussed with ALEXANDER ANSARI at 06/22/2019 1:20 AM. RESULT CODE: (C) Electronically signed by: Steven Robison DO (06/22/2019 1:21 AM) [id number]
[2019-06-22 01:30] LABS: ALBUMIN 3.9 g/dL (3.4-5.0); ALBUMIN/GLOBULIN RATIO 1.2 (1.0-1.7); TOTAL BILIRUBIN 0.4 mg/dL (0.2-1.0); TOTAL PROTEIN 7.1 g/dL (6.4-8.2)
[2019-06-22] MEDS ORDERED: fentaNYL PF VIAL 100 MCG/2 ML VIAL ONE ×2 (01:51→03:34)
[2019-06-22] MEDS ORDERED: SUCCINYLCHOLINE 200 MG/10 ML VIAL. ONE (01:51)
[2019-06-22] MEDS ORDERED: ROCURONIUM 50 MG/5 ML VIAL. ONE (01:51)
[2019-06-22] MEDS ORDERED: ONDANSETRON PF 4 MG/2 ML VIAL. ONE (01:52)
[2019-06-22] MEDS ORDERED: PROPOFOL 20 ML IV ONE (01:52)
[2019-06-22] MEDS ORDERED: SEVOFLURANE 31 TO 60 MINUTES. IH ONE (01:52)
[2019-06-22] MEDS ORDERED: DEXAMETHASONE SOD PHOS 4 MG/ML VIAL ONE (01:52)
[2019-06-22] MEDS ORDERED: KETOROLAC 30 MG/ML VIAL. ONE (01:52)
[2019-06-22] MEDS ORDERED: LIDOCAINE 2% PF 5 ML VIAL. ONE (01:52)
[2019-06-22] MEDS ORDERED: CLINDAMYCIN 900MG PREMIX 50 ML IV ONE (02:02)
--- NOTE | 2019-06-22 02:06 | PDOC1 ---
History and Physical Date of Admission Date of Admission DATE: 06/22/19 TIME: 02:01 Identification/Chief Complaint Chief Complaint abd pain and vaginal spotting Source Source: Patient History of Present Illness History of Present Illness 38 y/o A6 @ 7 wks presented to ED from [facility] with possible ectopic . She reports severe abd pain that was worsening and vaginal spotting. Pelvic sono confirms possible ruptured ectopic . She has h/o ectopic in past that was treated with methotrexate. Current Problem List Problem List Problems Medical Problems: (1) , ectopic, tubal Status: Acute Current Medications Current Medications Current Medications Fentanyl Citrate (Fentanyl 2ml Vial) 25 mcg PRN Q15MIN PRN IV PAIN GREATER THAN 3/10; Start 06/22/19 at 00:30; Stop 06/23/19 at 00:29 Succinylcholine Chloride (Anectine) 200 mg STK-MED ONCE .ROUTE ; Start 06/22/19 at 01:51; Stop 06/22/19 at 01:51; Status DC Rocuronium Duff (Zemuron) 50 mg STK-MED ONCE .ROUTE ; Start 06/22/19 at 01:51; Stop 06/22/19 at 01:51; Status DC Fentanyl Citrate (Fentanyl 2ml Vial) 100 mcg STK-MED ONCE .ROUTE ; Start 06/22/19 at 01:51; Stop 06/22/19 at 01:51; Status DC Sevoflurane (Ultane) 30 ml STK-MED ONCE IH ; Start 06/22/19 at 01:52; Stop 06/22/19 at 01:52; Status DC Dexamethasone Sodium Phosphate (Decadron) 4 mg STK-MED ONCE .ROUTE ; Start 06/22/19 at 01:52; Stop 06/22/19 at 01:52; Status DC Ketorolac Tromethamine (Toradol 30mg Vial) 30 mg STK-MED ONCE .ROUTE ; Start 06/22/19 at 01:52; Stop 06/22/19 at 01:52; Status DC Ondansetron HCl (Zofran) 4 mg STK-MED ONCE .ROUTE ; Start 06/22/19 at 01:52; Stop 06/22/19 at 01:52; Status DC Lidocaine HCl (Lidocaine Pf 2% Vial) 5 ml STK-MED ONCE .ROUTE ; Start 06/22/19 at 01:52; Stop 06/22/19 at 01:52; Status DC Propofol 20 ml @ As Directed STK-MED ONCE IV ; Start 06/22/19 at 01:52; Stop 06/22/19 at 01:52; Status DC Active Scripts Active Prednisone 50 Mg Tablet 1 Tab PO DAILY Tessalon Perle (Benzonatate) 100 Mg Capsule 1 Cap PO TID Tessalon Perle (Benzonatate) 100 Mg Capsule 1 Cap PO TID Proair Respiclick (Albuterol Sulfate) 90 Mcg Aer.pow.ba 1 Puff IH PRN Q6HRS PRN Zofran (Ondansetron Hcl) 4 Mg Tablet 1 Tab PO PRN Q6-8HRS PRN Cyclobenzaprine Hcl 10 Mg Tablet 10 Mg PO TID PRN Naproxen 250 Mg Tablet 250 Mg PO PRN BID PRN Allergies Allergies: Coded Allergies: Penicillins (Verified Allergy, Intermediate, 06/22/19) ROS General: YES: Malaise; No: Chills, Night Sweats, Fatigue, Appetite, Other PSYCHOLOGICAL ROS: YES: Anxiety; No: Behavioral Disorder, Concentration difficultie, Decreased libido, D epression, Disorientation, Hallucinations, Hostility, Irritablity, Memory difficulties, Mood Swings, Obsessive thoughts, Physical abuse, Sexual abuse, Sleep disturbances, Suicidal ideation, Other Eyes: Yes Uses glasses; No Blurry vision, No Decreased vision, No Double vision, No Dry eyes, No Excessive tearing, No Eye Pain, No Itchy Eyes, No Loss of vision, No Photophobia, No Scotomata, No Uses contacts, No Other HEENT: No: Heacaches, Visual Changes, Hearing change, Nasal congestion, Nasal discharge, Oral lesions, Sinus pain, Sore Throat, Epistaxis, Sneezing, Snoring, Tinnitus, Vertigo, Vocal changes, Other ALLERGY AND IMMUNOLOGY: No: Hives, Insect Bite Sensitivity, Itchy/Watery Eyes, Nasal Congestion, Post Nasal Drip, Seasonal Allergies, Other Hematological and Lymphatic: No: Bleeding Problems, Blood Clots, Blood Transfusions, Brusing, Night Sweats, Pallor, Swollen Lymph Nodes, Other ENDOCRINE: No: Breast Changes, Galactorrhea, Hair Pattern Changes, Hot Flashes, Malaise/lethargy, Mood Swings, Palpitations, Polydipsia/polyuria, Skin Changes, Temperature Intolerance, Unexpected Weight Changes, Other Respiratory: No: Cough, Hemoptysis, Orthopnea, Pleuritic Pain, Shortness of breath, SOB with excertion, Sputum Changes, Stridor, Tachypnea, Wheezing, Other Cardiovascular: No Chest Pain, No Palpitations, No Orthopnea, No Paroxysmal Noc. Dyspnea, No Edema, No Lt Headedness, No Other Gastrointestinal: Yes Abdominal Pain Skin: No Dry Skin, No Eczema, No Hair Changes, No Lumps, No Mole Changes, No Mottling, No Nail Changes, No Pruritus, No Rash, No Skin Lesion Changes, No Other, No Acne Physical Exam General: Alert, Oriented X3, Cooperative, mild distress HEENT: Atraumatic Lungs: Clear to auscultation Heart: S1S2 Abdomen: Normal bowel sounds, Soft, Other (tenderness) PELVIC: Examination not indicated Psych/Mental Status: Mental status NL Vitals Vitals Vital Signs Date Time Temp Pulse Resp B/P (MAP) Pulse Ox O2 Delivery O2 Flow Rate FiO2 06/22/19 00:20 98.4 80 18 108/59 (75) 98 Room Air 98.4 Labs Labs Laboratory Tests Test 06/22/19 01:03 White Blood Count 9.1 x10^3/uL (4.0-11.0) Red Blood Count 3.39 x10^6/uL (3.50-5.40) Hemoglobin 11.2 g/dL (12.0-15.5) Hematocrit 32.7 % (36.0-47.0) Mean Corpuscular Volume 97 fL (79-100) Mean Corpuscular Hemoglobin 33 pg (25-35) Mean Corpuscular Hemoglobin Concent 34 g/dL (31-37) Red Cell Distribution Width 13.3 % (11.5-14.5) Platelet Count 314 x10^3/uL (140-400) Neutrophils (%) (Auto) 48 % (31-73) Lymphocytes (%) (Auto) 45 % (24-48) Monocytes (%) (Auto) 7 % (0-9) Eosinophils (%) (Auto) 1 % (0-3) Basophils (%) (Auto) 1 % (0-3) Neutrophils # (Auto) 4.3 x10^3/uL (1.8-7.7) Lymphocytes # (Auto) 4.0 x10^3/uL (1.0-4.8) Monocytes # (Auto) 0.6 x10^3/uL (0.0-1.1) Eosinophils # (Auto) 0.0 x10^3/uL (0.0-0.7) Basophils # (Auto) 0.1 x10^3/uL (0.0-0.2) Prothrombin Time 13.5 SEC (11.7-14.0) Prothromb Time International Ratio 1.1 (0.8-1.1) Maternal Serum HCG Beta Subunit 3486 mIU/mL (0-5) Sodium Level 140 mmol/L (136-145) Potassium Level 3.8 mmol/L (3.5-5.1) Chloride Level 103 mmol/L (98-107) Carbon Dioxide Level 24 mmol/L (21-32) Anion Gap 13 (6-14) Blood Urea Nitrogen 6 mg/dL (7-20) Creatinine 0.6 mg/dL (0.6-1.0) Estimated GFR (Cockcroft-Gault) 134.0 BUN/Creatinine Ratio 10 (6-20) Glucose Level 93 mg/dL (70-99) Calcium Level 9.1 mg/dL (8.5-10.1) Total Bilirubin 0.4 mg/dL (0.2-1.0) Aspartate Amino Transf (AST/SGOT) 9 U/L (15-37) Alanine Aminotransferase (ALT/SGPT) 14 U/L (14-59) Alkaline Phosphatase 55 U/L (46-116) Total Protein 7.1 g/dL (6.4-8.2) Albumin 3.9 g/dL (3.4-5.0) Albumin/Globulin Ratio 1.2 (1.0-1.7) Laboratory Tests Test 06/22/19 01:03 White Blood Count 9.1 x10^3/uL (4.0-11.0) Red Blood Count 3.39 x10^6/uL (3.50-5.40) Hemoglobin 11.2 g/dL (12.0-15.5) Hematocrit 32.7 % (36.0-47.0) Mean Corpuscular Volume 97 fL (79-100) Mean Corpuscular Hemoglobin 33 pg (25-35) Mean Corpuscular Hemoglobin Concent 34 g/dL (31-37) Red Cell Distribution Width 13.3 % (11.5-14.5) Platelet Count 314 x10^3/uL (140-400) Neutrophils (%) (Auto) 48 % (31-73) Lymphocytes (%) (Auto) 45 % (24-48) Monocytes (%) (Auto) 7 % (0-9) Eosinophils (%) (Auto) 1 % (0-3) Basophils (%) (Auto) 1 % (0-3) Neutrophils # (Auto) 4.3 x10^3/uL (1.8-7.7) Lymphocytes # (Auto) 4.0 x10^3/uL (1.0-4.8) Monocytes # (Auto) 0.6 x10^3/uL (0.0-1.1) Eosinophils # (Auto) 0.0 x10^3/uL (0.0-0.7) Basophils # (Auto) 0.1 x10^3/uL (0.0-0.2) Prothrombin Time 13.5 SEC (11.7-14.0) Prothromb Time International Ratio 1.1 (0.8-1.1) Maternal Serum HCG Beta Subunit 3486 mIU/mL (0-5) Sodium Level 140 mmol/L (136-145) Potassium Level 3.8 mmol/L (3.5-5.1) Chloride Level 103 mmol/L (98-107) Carbon Dioxide Level 24 mmol/L (21-32) Anion Gap 13 (6-14) Blood Urea Nitrogen 6 mg/dL (7-20) Creatinine 0.6 mg/dL (0.6-1.0) Estimated GFR (Cockcroft-Gault) 134.0 BUN/Creatinine Ratio 10 (6-20) Glucose Level 93 mg/dL (70-99) Calcium Level 9.1 mg/dL (8.5-10.1) Total Bilirubin 0.4 mg/dL (0.2-1.0) Aspartate Amino Transf (AST/SGOT) 9 U/L (15-37) Alanine Aminotransferase (ALT/SGPT) 14 U/L (14-59) Alkaline Phosphatase 55 U/L (46-116) Total Protein 7.1 g/dL (6.4-8.2) Albumin 3.9 g/dL (3.4-5.0) Albumin/Globulin Ratio 1.2 (1.0-1.7) VTE Prophylaxis Ordered VTE Prophylaxis Devices: Yes VTE Pharmacological Prophylaxi: No Assessment/Plan Assessment/Plan A: Ruptured Ectopic P: Plan LPSC unilateral salpingectomy. SEPIDEH RODAS Jr, MD Jun 22, 2019 02:06
[2019-06-22] MEDS ORDERED: IV RINGERS,LACTATED 1000ML 1,000 ML IV SCH (02:17)
[2019-06-22] MEDS ORDERED: BUPIVACAINE-EPI 0.25%-1:200000 MPF 30 ML VIAL. ONE (02:20)
[2019-06-22] MEDS ORDERED: HYDROmorphone 2 MG/ML VIAL IV PRN (02:30)
[2019-06-22] MEDS ORDERED: ONDANSETRON PF 4 MG/2 ML VIAL. IV PRN ×2 (02:30→03:15)
[2019-06-22] MEDS ORDERED: fentaNYL PF VIAL 100 MCG/2 ML VIAL IV PRN ×2 (02:30)
[2019-06-22] MEDS ORDERED: MORPHINE SULFATE 2 MG/ML VIAL. IV PRN (02:30)
[2019-06-22] MEDS ORDERED: PROCHLORPERAZINE 10 MG/2 ML VIAL. IV PRN ×2 (02:30→03:15)
[2019-06-22] MEDS ORDERED: GLYCOPYRROLATE 1 MG/5 ML VIAL. ONE (02:37)
[2019-06-22] MEDS ORDERED: NEOSTIGMINE METHYLSULFATE 5 MG/5 ML SYRINGE. ONE (02:37)
--- NOTE | 2019-06-22 03:14 | PDOC ---
BRIEF OPERATIVE NOTE Date: Jun 22, 2019 Pre-Op Diagnosis Ruptured ectopic Post-Op Diagnosis SAme Procedure Performed [facility] Right Salpingectomy Surgeon Dr. Armendariz Anesthesia Type: General Blood Loss 100ml ( majority blood clot in abdomen from ectopic ) Specimens Obtained Right fallopian tube with ectopic Findings ruptured Right ectopic ; nml ovaries randolph., nml Left fallopian tube Complications none Operative Note see dictation SEPIDEH ARMENDARIZ Jr, MD Jun 22, 2019 03:14
[2019-06-22] MEDS ORDERED: KETOROLAC 30 MG/ML VIAL. IV PRN (03:15)
[2019-06-22] MEDS ORDERED: DEXTROSE 50% 25 GM / 50ML DISP.SYRIN. IV PRN (03:15)
[2019-06-22] MEDS ORDERED: ZOLPIDEM 5 MG TABLET. PO PRN (03:15)
[2019-06-22] MEDS ORDERED: diphenhydrAMINE HCL 25 MG CAPSULE PO PRN (03:15)
[2019-06-22] MEDS ORDERED: diphenhydrAMINE 50 MG/ML VIAL IV PRN (03:15)
[2019-06-22] MEDS ORDERED: 0.9 % SODIUM CHLORIDE 10 ML DISP.SYRIN. IV PRN (03:15)
[2019-06-22] MEDS ORDERED: CALCIUM CARBONATE 500 MG TAB.CHEW PO PRN (03:15)
--- NOTE | 2019-06-22 03:26 | OP ---
DATE OF SURGERY: 06/22/2019 PREOPERATIVE DIAGNOSIS: Ruptured ectopic . POSTOPERATIVE DIAGNOSIS: Ruptured ectopic . PROCEDURE: Laparoscopic right salpingectomy. SURGEON: Nicolás Armendariz MD ANESTHESIA: GETA. ESTIMATED BLOOD LOSS: 100 mL with majority of the blood clot in the abdomen from the ectopic . FINDINGS: Ruptured right ectopic , normal ovaries bilaterally, normal left fallopian tube. COMPLICATIONS: None. SUMMARY: A 7-week gestation patient that presented to the [facility] for abdominal pain and was then transferred to the [facility] with confirmed ruptured ectopic . She was counseled on the risks, benefits and expectations of laparoscopic salpingectomy, possible oophorectomy and voiced a clear understanding to proceed. DESCRIPTION OF PROCEDURE: The patient was taken to surgery suite and placed in dorsal lithotomy position. She was prepped with Betadine solution for vaginal prep and ChloraPrep for abdominal prep. After adequate anesthesia, bivalve speculum was placed vaginally. Anterior lip of the cervix grasped with single tooth tenaculum. The uterine acorn manipulator was then placed. The bivalve speculum was removed. Attention was now placed on the abdomen. Marcaine 0.25% with epinephrine was injected at each insertion point of the trocars in which a scalpel was utilized to make an incision just below the umbilicus. Two additional incisions were made in the left lower quadrant with a scalpel in which two 5 mm ports were placed as well as an 11 mm port. The scope was then positioned. There was moderate amount of blood in the cul-de-sac, which was evacuated with suction engine cowling installer. The fallopian tubes and ovaries were then removed and evaluated in the right fallopian tube, had active bleeding from the fimbriated end along with the mass in the right fallopian tube with the aid of the EnSeal device. A distal salpingectomy was performed using the EnSeal device. The area was then hemostatic. The right fallopian tube containing the ectopic was removed with Endobag. Suction irrigation was utilized to further remove additional blood clot and to ensure good hemostasis. Small amount of normal saline was left in posterior cul-de-sac. The trocars were then removed under direct visualization. The abdomen was allowed to deflate as much as possible along with mechanical manipulation. The 11 mm port site was closed at the fascial layer using 2-0 Vicryl suture in [id number] manner. The three skin incision was closed at the skin level using 4-0 Vicryl suture in a subcuticular manner. Single tooth tenaculum and acorn manipulator were then removed. The patient tolerated the procedure well and was taken to recovery room in stable condition. Sponge and needle count correct x 3. NICOLÁS ARMENDARIZ MD DR: GLENN/pb JOB#: [id number] / [id number]
[2019-06-22] MEDS: fentaNYL PF VIAL 100 MCG/2 ML VIAL IV PRN ×2 (03:35→03:52)
[2019-06-22 03:44] LABS: BASO % 1 % (0-3); EOS % 1 % (0-3); HEMATOCRIT 31.6 % (36.0-47.0); HEMOGLOBIN 10.8 g/dL (12.0-15.5); LYMPH # 2.6 x10^3/uL (1.0-4.8); LYMPH % 55 % (24-48); MEAN CORPUSCULAR HEMOGLOBIN 34 pg (25-35); MEAN CORPUSCULAR HGB CONC 34 g/dL (31-37); MEAN CORPUSCULAR VOLUME 98 fL (79-100); MONO # 0.3 x10^3/uL (0.0-1.1); MONO % 6 % (0-9); NEUT # 1.8 x10^3/uL (1.8-7.7); NEUT % 37 % (31-73); PLATELET COUNT 276 x10^3/uL (140-400); RED BLOOD COUNT 3.23 x10^6/uL (3.50-5.40); RED CELL DISTRIBUTION WIDTH 13.2 % (11.5-14.5); WHITE BLOOD COUNT 4.7 x10^3/uL (4.0-11.0)
[2019-06-22 04:30] VITALS: BP 100/62
[2019-06-22] MEDS ORDERED: GABAPENTIN 300 MG CAPSULE. PO SCH (06:00)
[2019-06-22] MEDS: oxyCODONE/APAP 5/325 1 TAB TABLET PO PRN ×2 (09:04→12:10)
[2019-06-22] MEDS: SIMETHICONE 80 MG TAB.CHEW PO PRN ×2 (09:04→12:10)
[2019-06-22] MEDS ORDERED: FLU VAX QS 2019-20 (36MOS+)/PF 0.5 ML SYRINGE. VAX IM ONE (10:15)
[2019-06-22 10:49] VITALS: BP 108/67
[2019-06-22] MEDS ORDERED: GABA300C18 PO (11:45)
[2019-06-22] MEDS ORDERED: OXYC1TAB15 PO (11:45)
--- NOTE | 2019-06-22 11:46 | DISCH ---
DISCHARGE INSTRUCTIONS Condition on Discharge Condition on Discharge: Stable Activity After Discharge Activity Instructions for Disc: Activity as tolerated Lifting Instructions after Dis: No heavy lifting Driving Instructions after Dis: Do not drive today Diet after Discharge Diet after Discharge: Regular Contacting the [facility] after DC Call your doctor for: Concerns you may have Follow-Up Follow up with: DR. Armendariz in 1 week SEPIDEH ARMENDARIZ Jr, MD Jun 22, 2019 11:46
[2019-06-22 15:46] LABS: BASO % 0 % (0-3); EOS % 0 % (0-3); HEMATOCRIT 31.4 % (36.0-47.0); HEMOGLOBIN 10.9 g/dL (12.0-15.5); LYMPH # 2.2 x10^3/uL (1.0-4.8); LYMPH % 31 % (24-48); MEAN CORPUSCULAR HEMOGLOBIN 34 pg (25-35); MEAN CORPUSCULAR HGB CONC 35 g/dL (31-37); MEAN CORPUSCULAR VOLUME 97 fL (79-100); MONO # 0.5 x10^3/uL (0.0-1.1); MONO % 6 % (0-9); NEUT # 4.6 x10^3/uL (1.8-7.7); NEUT % 63 % (31-73); PLATELET COUNT 297 x10^3/uL (140-400); RED BLOOD COUNT 3.23 x10^6/uL (3.50-5.40); RED CELL DISTRIBUTION WIDTH 13.5 % (11.5-14.5); WHITE BLOOD COUNT 7.3 x10^3/uL (4.0-11.0)
[2019-06-22 16:16] VITALS: BP 112/73
--- NOTE | 2019-06-22 16:18 | NUR ---
Discharge Discharge and incisional instructions given to patient at this time, no questions or concerns noted. To follow up with DR Armendariz in 1 week. Ambulated off unit with all her belongings and family at her side.
--- NOTE | 2019-06-23 17:06 | PATHOLOGY ---
[facility] Accession Number: [id number] . 01 Material submitted: . fallopian tube - RIGHT TUBE AND ECTOPIC. Modifiers: right . 01 Clinical history: . Right ectopic . 02 Diagnosis: Fallopian tube, laparoscopic right salpingectomy: - Ectopic tubal . - Hematosalpinx. (JPM:sushil; 06/23/2019) MBR 06/23/2019 1313 Local . 02 Electronically signed: . Perfecto Camacho MD, Pathologist NPI- [id number] . 01 Gross description: . The specimen is received in formalin, labeled "Timur Cuellar, right tube and ectopic". Received is an intact fimbriated fallopian tube measuring 7.1 cm in length and ranges in diameter from 1.1 to 1.8 cm. At the fimbriated aspect, a moderate amount of blood coagulum is adherent and expelling from the lumen. Sectioning reveals a dilated lumen filled with blood coagulum and possible soft tissue. or embryonic tissue is not grossly identified. The specimen is submitted representatively in cassettes A1 through A3. (CAA; 06/22/2019) QAC/QAC 06/22/2019 1643 Local . 02 Pathologist provided ICD-10: O00.90, N83.6 . 02 CPT . 086482 Specimen Comment: A courtesy copy of this report has been sent to [phone] Specimen Comment: [id number], Specimen Comment: Report sent to ,DR HUYNH / DR ANSARI Performed at: [address], [place], [place] [id number] MD Jorge Fischer MD Phone: [phone] Performed at: 02 [facility] [address] [place] [id number] MD Perfecto Camacho MD Phone: [phone]
== END 2019-06-22 16:22 | disposition home or self-care (01) ==
LOC: ER 00:19 → 3 NORTH 01:51 → INTOOBSV 01:51
PROVIDERS: ADMIT Obstetrics & Gynecology; ATTEND Obstetrics & Gynecology
DX: O00.90 Unspecified ectopic pregnancy without intrauterine pregnancy (principal); J45.909 Unspecified asthma, uncomplicated; I10 Essential (primary) hypertension; F32.9 Major depressive disorder, single episode, unspecified; Z90.710 Acquired absence of both cervix and uterus; Z3A.01 Less than 8 weeks gestation of pregnancy
CPT/HCPCS: 36415; 59151; 76817; 80053; 84702; 85025; 85610; 86900; 86901; 90471; 90686; 99284; A7015; G0378; J1100; J2001; J2704; J2710; J3010; J3490; J7030; 88305; G0379; J0330; J1885; J2405